=== PATIENT | male | born 1945 | race Caucasian/White ===

== ENCOUNTER 2018-12-09 15:44 | Emergency (ER) | payer OTHER ==
[~2018-12-09] VITALS: Ht 180.3 cm; Wt 84.8 kg
[2018-12-09 16:00] VITALS: Ht 180.3 cm; Wt 84.8 kg
[2018-12-09] MEDS ORDERED: LITHIUM CARBON300 M1 PO (16:32)
[2018-12-09] MEDS ORDERED: METFORMIN HCL1000 MG PO (16:33)
[2018-12-09] MEDS ORDERED: ALLOPURINOL100 MG PO (16:33)
[2018-12-09] MEDS ORDERED: FENOFIBRATE MI134 MG PO (16:33)
[2018-12-09] MEDS ORDERED: COUMADIN2.5 MG PO (16:34)
[2018-12-09] MEDS ORDERED: FUROSEMIDE20 MG PO (16:34)
[2018-12-09] MEDS ORDERED: METFORMIN HYDR500 M1 PO (16:36)
[2018-12-09 16:58] LABS: PLATELET COUNT 308 x10^3mcL (130-400); RED CELL DISTRIBUTION WIDTH 14.1 % (11.5-14.5)
[2018-12-09 16:59] LABS: BASOPHIL % 0 % (0-2)
[2018-12-09 17:01] LABS: CALCIUM 11.4 mg/dL (8.5-10.1); CARBON DIOXIDE 22.5 mmol/L (21-32); CHLORIDE SERUM 108 mmol/L (98-107); CREATININE SERUM 1.4 mg/dL (0.7-1.3); GLUCOSE SERUM 151 mg/dL (74-106); POTASSIUM SERUM 4.1 mmol/L (3.5-5.1); SODIUM SERUM 138 mmol/L (136-145)
[2018-12-09 17:05] LABS: ALBUMIN 3.8 g/dL (3.4-5.0); ALKALINE PHOSPHATASE 73 U/L (46-116); ALT/SGPT 20 U/L (16-63); AST/SGOT 15 U/L (15-37); BILIRUBIN TOTAL 0.81 mg/dL (0.20-1.00); TOTAL PROTEIN, SERUM 7.5 g/dL (6.4-8.2)
[2018-12-09 19:35] VITALS: BP 139/115
[2018-12-09 19:51] LABS: microscopic required? YES; urine erythrocyte 1+ (NEGATIVE)
== END 2018-12-09 20:20 | disposition short-term general hospital (02) ==
LOC: ED 15:44
PROVIDERS: Emergency Medicine
DX: S72.002A Fracture of unspecified part of neck of left femur, initial encounter for closed fracture (principal); N39.0 Urinary tract infection, site not specified; F81.81 Disorder of written expression; Z79.01 Long term (current) use of anticoagulants; Z88.8 Allergy status to other drugs, medicaments and biological substances; W18.30XA Fall on same level, unspecified, initial encounter; Y93.89 Activity, other specified; Y92.89 Other specified places as the place of occurrence of the external cause; Y99.8 Other external cause status
CPT/HCPCS: J0696; J2270; J2405; J7030; J7060; Q0092

== ENCOUNTER 2018-12-30 12:16 | Inpatient (IN) | payer OTHER ==
[~2018-12-30] VITALS: Ht 172.7 cm; Wt 78.5 kg
[~2018-12-30 12:16] MED LIST: ALLOPURINOL100 MG PO; COUMADIN2.5 MG PO; FENOFIBRATE MI134 MG PO; FUROSEMIDE20 MG PO; LITHIUM CARBON300 M1 PO; METFORMIN HCL1000 MG PO; METFORMIN HYDR500 M1 PO
--- NOTE | 2018-12-30 12:23 | NUR ---
AT BEDSIDE FOR PROCEDURE.
--- NOTE | 2018-12-30 12:29 | NUR ---
PT PRESENTS TO ED BIBA FROM [facility] FOR GT/FEEDING TUBE REPLACEMENT. PER EMS TUBE WAS NEWLY PLACED AND CAME OUT. EMS STS TUBE IS IN PLACE BECAUSE PT IS NPO. EMS REPORT PT HAS HX OF STROKE AND IS UNABLE TO TALK BUT STILL MAKES NOISES TO RESPOND. EMS STS PT WAS AT [facility] S/P FALL AND FEMUR FRACTURE. EMS STS PT VSS IN ROUTE TO HOSPITAL. PT NORMAL FOR SELF, UNABLE TO ANSWER QUESTIONS, RESP E/U, ON FULL CM, NO ACUTE DISTRESS NOTED AT THIS TIME. WILL CONTINUE TO MONITOR.
--- NOTE | 2018-12-30 13:36 | NUR ---
PT LAYING ON GURNEY, ACTING NORMAL FOR SELF, RESP E/U, ON FULL CM, NO ACUTE DISTRESS NOTED AT THIS TIME.
[2018-12-30 15:21] LABS: BASOPHIL % 0 % (0-2); PLATELET COUNT 469 x10^3mcL (130-400); RED CELL DISTRIBUTION WIDTH 15.8 % (11.5-14.5)
[2018-12-30 15:42] LABS: CARBON DIOXIDE 26.1 mmol/L (21-32); CHLORIDE SERUM 110 mmol/L (98-107); CREATININE SERUM 1.7 mg/dL (0.7-1.3); GLUCOSE SERUM 238 mg/dL (74-106); POTASSIUM SERUM 4.6 mmol/L (3.5-5.1); SODIUM SERUM 144 mmol/L (136-145)
[2018-12-30 15:46] LABS: ALKALINE PHOSPHATASE 105 U/L (46-116); ALT/SGPT 16 U/L (16-63); AST/SGOT 15 U/L (15-37); BILIRUBIN TOTAL 0.47 mg/dL (0.20-1.00)
[2018-12-30 15:47] LABS: ALBUMIN 3.1 g/dL (3.4-5.0); TOTAL PROTEIN, SERUM 8.3 g/dL (6.4-8.2)
[2018-12-30] MEDS ORDERED: ALBUTEROL SULFAT3 ML NEB (16:03)
[2018-12-30] MEDS ORDERED: ALLOPURINOL100 MG GT (16:03)
[2018-12-30] MEDS ORDERED: LIPI20 GT (16:04)
[2018-12-30] MEDS ORDERED: ASPIR 8181 MG GT (16:04)
[2018-12-30] MEDS ORDERED: DULCOLAX10 M1 RC (16:05)
[2018-12-30] MEDS ORDERED: ELIQUIS5 MG GT (16:05)
[2018-12-30] MEDS ORDERED: COLACE100 MG GT (16:05)
[2018-12-30] MEDS ORDERED: FENOFIBRATE MI134 MG GT (16:06)
[2018-12-30] MEDS ORDERED: FUROSEMIDE20 MG GT (16:06)
[2018-12-30 16:07] LABS: MAGNESIUM 2.9 mg/dL (1.8-2.4); PHOSPHOROUS 3.1 mg/dL (2.5-4.9)
[2018-12-30] MEDS ORDERED: HUMULIN R100 U/1 M1 IJ (16:07)
[2018-12-30] MEDS ORDERED: LITHIUM CARBON300 MG GT (16:08)
[2018-12-30] MEDS ORDERED: LEVAQUIN750 MG GT (16:08)
[2018-12-30] MEDS ORDERED: KRISTALOSE10 GM/Pack GT (16:08)
[2018-12-30] MEDS ORDERED: FLAGYL500 MG GT (16:09)
[2018-12-30] MEDS ORDERED: GOOD NEIGH1200 MG/15 GT (16:09)
[2018-12-30] MEDS ORDERED: NORCO1 TA2 GT (16:10)
[2018-12-30] MEDS ORDERED: REG5 GT (16:11)
--- NOTE | 2018-12-30 16:31 | NUR ---
REPORT CALLED TO BLANCA EISENBERG ON MED/SURG UNIT TO ASSUME CARE OF PT
--- NOTE | 2018-12-30 17:05 | NUR ---
RECEIVED PT FROM ED VIA [facility], CAME IN FROM [facility] FOR G-TUBE DISPLACEMENT. PT IS ALERT, AWAKE BUT NON-VERBAL. ABLE TO FOLLOW VERY SIMPLE COMMANDS. HAND CAN SOLDERER ARE WEAK. NO FACIAL DROOP. PUPILS ARE REACTIVE TO LIGHT. NO SOB NOTED, LUNG SOUNDS CTA. NO S/S OF PAIN NOTED. ABDOMEN IS DISTENDED BUT SOFT. BOWEL SOUNDS HYPOACTIVE. NO G-TUBE AT THIS TIME. W/ ROBISON CATHETER DRAINING W/ YELLOW COLORED URINE. W/ ABRASION ON LEFT UPPER LEG, BILATERAL HEELS AND BUTTOCKS BLANCHABLE ERYTHEMA (OPTIFOAM IN PLACE FOR PROTECTION), OLD G-TUBE SITE ON THE ABDOMEN (COVERED W/ GAUZE SECURED W/ TAPE), SMALL REDDENED SPOTS ON THE BACK, AND BUE ECCHYMOSIS. W/ LINEAR SCABS ON THE LEFT HIP, W/ ABDUCTOR PILLOW IN BETWEEN LEGS. ON AIR MATTRESS. SIDE RAILS UPX2. CALL LIGHT ON REACH. HOB ELEVATED AT 30 DEG. PRIMARY NURSE SHARLA AT BEDSIDE FOR CONTINUITY OF CARE
[2018-12-30 17:44] VITALS: BP 120/71
[2018-12-30 17:55] VITALS: Ht 172.7 cm; Wt 78.5 kg
--- NOTE | 2018-12-30 18:07 | NUR ---
PT IS LAYING DOWN IN BED WITH HOB UP WATCHING TV. PT LOOKS TO BE IN NO ACUTE DISTRESS AT THIS TIME AND DENIES ANY PAIN. PT ABLE TO RESPOND TO QUESTIONS BUT IS INCOMPREHENDABLE, PT ABLE TO OBEY COMMANDS. ROBISON CATHETER PRESENT DRAINING CLEAR YELLOW URINE. OPTIFOAM TO SACRAL AREA, FOAM DRESSING TO B/L HEELS. G TUBE SITE CDI AND COVERED WITH GAUZE DRESSING. IV SITE PATENT WITH NO SIGNS OF ERYTHEMA OR SWELLING WITH IV FLUIDS INFUSING. BED IN LOWEST POSITION CALL LIGHT WITHIN REACH. WILL ENDORSE TO ONCOMING SHIFT.
[2018-12-30 19:14] LABS: microscopic required? NO
[2018-12-30 19:18] LABS: UA SPECIFIC GRAVITY <=1.005 (1.005-1.035); urine erythrocyte NEGATIVE (NEGATIVE)
[2018-12-30 19:27] LABS: AMPHETAMINE QUAL UR NONE DETECTED (See below)
[2018-12-30 19:38] VITALS: BP 133/68
--- NOTE | 2018-12-30 20:00 | NUR ---
RECEIVED PT IN BED, ALERT AND AWAKE. NON VERBAL. ABLE TO FOLLOW SIMPLE COMMANDS. RESP. EVEN AND UNLABORED. LUNG SOUNDS CLEAR BILAT. ON ROOM AIR, NO ACUTE DISTRESS NOTED. ON AIR MATTRESS, WITH GEN. WEAKNESS, TOTAL CARE, NEEDS TO BE TURNED AND REPOSITIONED Q2HRS AND PRN. ECHYMOSIS TO BUE, REDDENED SPOTS TO BACK, HEELS, BUTTOCKS, LT GROIN AND SCROTAL AREA.ABDUCTION PILLOW BETWEEN LEGS. KEPT COMFORTABLE. ROBISON CATH INTACT AND DRAINING YELLOW COLOR URINE. IVF, NS AT 150ML/HR, INFUSING VIA LW SITE CLEAR. CALL LIGHT WITHIN REACH. WILL CONTINUE TO MONITOR.
--- NOTE | 2018-12-30 22:45 | NUR ---
TURNED AND REPOSITIONED FOR COMFORT. IVF, D5NS AT 100ML/HR, INFUSING VIA LAC. WILL CONTINUE TO MONITOR.
--- NOTE | 2018-12-31 01:11 | NUR ---
EYES CLOSED, APPEARS ASLEEP, EASILY AROUSABLE. RESP. EVEN AND UNLABORED. ON ROOM AIR, NO ACUTE DISTRESS NOTED. WILL CONTINUE TO MONITOR.
[2018-12-31 04:41] VITALS: BP 131/76
--- NOTE | 2018-12-31 06:07 | NUR ---
AFEBRILE AND VITAL SIGNS STABLE. RESP. EVEN AND UNLABORED. ON ROOM AIR, NO ACUTE DISTRESS NOTED. IVF INTACT AND INFUSING WELL, SITE CLEAR. TURNED AND REPOSITIONED Q2HRS AND PRN. ABDUCTION PILLOW BETWEEN LEGS. ROBISON CATH INTACT AND PATENT. NPO MAINTAINED ORDERED. CALL LIGHT WITHIN REACH. WILL CONTINUE TO MONITOR.
[2018-12-31 06:21] LABS: BASOPHIL % 0.4 % (0-2); PLATELET COUNT 379 x10^3mcL (130-400)
[2018-12-31 06:51] LABS: CALCIUM 11.3 mg/dL (8.5-10.1); CARBON DIOXIDE 19.9 mmol/L (21-32); CHLORIDE SERUM 117 mmol/L (98-107); CREATININE SERUM 1.7 mg/dL (0.7-1.3); GLUCOSE SERUM 293 mg/dL (74-106); MAGNESIUM 2.6 mg/dL (1.8-2.4); PHOSPHOROUS 2.2 mg/dL (2.5-4.9); POTASSIUM SERUM 5.1 mmol/L (3.5-5.1); SODIUM SERUM 146 mmol/L (136-145)
[2018-12-31 06:53] LABS: RED CELL DISTRIBUTION WIDTH 15.6 % (11.5-14.5)
--- NOTE | 2018-12-31 07:50 | NUR ---
PATIENT UNABLE TO TALK BUT ABLE TO MAKE SOUNDS. PATIENT FOLLOWS SOME SIMPLE COMMANDS. PATIENT WITH GENERALIZED WEAKNESS. NO INDICATION OF PAIN, NAUSEA/VOMITING OR SHORTNESS. IVF D5 NS VIA IV SITE TO LAC. OLD PEG TUBE SITE WITH DRESSING INTACT. ROBISON CATH TO GRAVITY DRAINING YELLOW URINE. ABDUCTOR PILLOW BETWEEN BLE. AIR MATTRESS IN USE. CALL LIGHT WITHIN REACH. SIDE RAILS UP X3. BED IS AT LOWEST POSITION. ALARM IS ON.
[2018-12-31 08:25] VITALS: BP 120/74
--- NOTE | 2018-12-31 09:25 | NUR ---
DR. DAMIAN WAS AT BEDSIDE ASSESSING THE PATIENT.
--- NOTE | 2018-12-31 09:30 | NUR ---
WITH ANOTHER RN, SUSANNE Seals WITNESSING DR. DAMIAN CALLING THE PATIENT'S , KITTY ZHENG TO OBTAIN THE CONSENTS FOR EGD WITH PEG TUBE PLACEMENT AND MODERATE SEDATION. RISK AND BENEFITS ARE EXPLAINED TO THE . THE VERBALIZES UNDERSTANDING AND AGREES FOR THE PATIENT TO HAVE THE PROCEDURE UNDER MODERATE SEDATION.
--- NOTE | 2018-12-31 10:21 | NUR ---
RECEIVED REPORT FROM ANGELA RIOS AND ASSUMED CARE OF THE PATIENT. ALL QUESTIONS AND CONCERNS ADDRESSED.
--- NOTE | 2018-12-31 10:29 | NUR ---
THE PATIENT WAS GIVEN A BATH WITH TONJA WIPES. A SWAB FROM PEG TUBE SITE COLLECTED AND WILL SEND TO LAB FOR CULTURE. REPORT GIVEN JOSE RODRIGUEZ RN. CONCERNS ADDRESSED AND PATIENT'S CARE ENDORSED ACCORDINGLY.
--- NOTE | 2018-12-31 10:31 | NUR ---
REPORT GIVEN TO GISELA RIOS IN GI. PATIENT TAKEN DOWNSTAIRS FOR EGD W/ PEG PLACEMENT VIA BED. AWAITING PATIENT RETURN TO FLOOR.
--- NOTE | 2018-12-31 11:36 | NUR ---
RECEIVED REPORT FROM OUTPATIENT RN. PATIENT DIAGNOSIS WAS NORMAL UPPER GI. PEG TUBE PLACE TO ALTERNATE LOCATION AND ABDOMINAL BINDER APPLIED. VITALS STABLE. PER DR RICKIE STOREY TO USE PEG. AWAITING PATIENT RETURN TO FLOOR.
--- NOTE | 2018-12-31 12:22 | NUR ---
RECEIVED PATIENT FROM GI. PATIENT RESTING COMFORTABLY IN BED AND REQUESTING SOMETHING TO DRINK. WILL CONSULT MD. ROBISON EMPTIED AT THIS TIME 1250 CLEAR YELLOW URINE REMOVED. FLUIDS RESUMED.
--- NOTE | 2018-12-31 14:29 | NUR ---
RECEIVED CALL FROM DARRION FOR PATIENT UPDATE. TOLD HER I WOULD NEED TO CALL HER BACK. GOT OK FROM SUSY TO UPDATE DARRION ON PATIENT STATUS. SUSY SAID OK.
--- NOTE | 2018-12-31 15:24 | NUR ---
CALLED DARRION BACK AND NOTIFIED THAT THERE ARE CURRENTLY NO PLANS TO SEND PATIENT BACK TODAY.
[2018-12-31 16:57] VITALS: BP 115/67
--- NOTE | 2018-12-31 17:54 | NUR ---
TUBE FEED STARTED NOW. GLUCERNA 1.2 @ 30 ML/HR W 50ML FWF Q4H. IF TOLERATED TO BE INCREASED TO GOAL 35 ML/HR EVERY FOUR HOURS.
--- NOTE | 2018-12-31 19:05 | NUR ---
REPORT RECEIVED FROM DAY SHIFT RN. PATIENT WAS SEEN AND IS RESTING COMFORTABLY IN BED. NO DISTRESS NOTED. BREATHING EVEN AND UNLABORED ON ROOM AIR. NO SOB OR RESP DISTRESS NOTED. NO S/S OF PAIN NOTED. NO INDICATIONS OF CHEST PAIN/PRESSURE. NONVERBAL, BUT IS ABLE TO FOLLW SIMPLE COMMANDS. NO MAONING OR FACIAL GRIMACING NOTED. EDUCATED PATIENT NOT TO PULL ON LINES OR TUBES. PEG TUBE NOTED WITH ABD BINDER. GLUCERNA 1.2 TUBE FEEDING AT 30ML /HR. IV TO THE LAC INFUSING WELL. PATENT AND INTACT. NO REDNESS OR SWELLING NOTED. ABDUCTOR PILLOW IN PLACE FOR PREV FEMUR FRACTURE. ROBISON CATH IN PLACE DRAINING LYLA URINE BY GRAVITY. SAFETY AND COMFORT MEASURES IN PLACE. ASPIRATION PRECAUTIONS IN PLACE. BED IS LOCKED AND IN THE LOWEST POSITION. SIDE RAILS UP X2. CALL LIGHT IS WITHIN REACH. WILL CONTINUE TO MONITOR.
--- NOTE | 2018-12-31 19:45 | NUR ---
REPORT GIVEN TO DENNISE RIOS. ALL QUESTIONS AND CONCERNS ADDRESSED. ALL CARES ENDORSED.
[2018-12-31 21:09] VITALS: BP 126/67
--- NOTE | 2018-12-31 21:30 | NUR ---
MEDS GIVEN THROUGHOUT GTUBE. 0ML OF RESIDUALS NOTED. BS 248. 6 UNITS OF RGUALR INSULIN GIVEN PER ORDER. GLUCERNA 1.2 AT 30ML/HR. PATIENT REPOSITIONED FOR COMFORT. NO DISTRESS NOTED. BREATHING EVEN AND UNLABORED. IV INFUSING WELL. SAFETY MEASURES IN PLACE. CALL LIGTH IS WITHIN REACH. WILL CONTINUE TO MONITOR.
--- NOTE | 2019-01-01 01:15 | NUR ---
RESTING IN BED WITH EYES CLOSED. NO DISTRESS NOTED. BREATHING EVEN AND UNLABORED ON ROOM AIR. TUBE FEEDING INFUSING WELL AT 30ML/HR. IVF INFUSING WELL. ROBISON CATH IN PLACE DRAINING NOW YELLOW URINE. ABDUCTOR PILLOW IN PLACE. SAFETY MEASURES IN PLACE. CALL LIGHT IS WITHIN REACH. WILL CONTINUE TO MONITOR.
--- NOTE | 2019-01-01 02:45 | NUR ---
IV TO LAC, 22G, CAME OUT WITH CATHETER INTACT. NEW IV INSERTED TO MATIAS, 22G, FLUSHED WELL. PATENT AND INTACT. NO REDNESS OR SWELLING. DRESSING CDI. PATIENT TOLERATED WELL. CONTINUED D5NS AT 70ML/HR. SAFETY MEASURES IN PLACE. WILL CONTINUE TO MONITOR.
--- NOTE | 2019-01-01 02:53 | NUR ---
PATIENT MOANING W/ FACIAL GRIMACING. ASKED PATIENT TO POINT AT WHERE HIS PAIN IS AT AND PATEINT POINTED TO ABD. PRN NORCO GIVEN PRESCRIBED THROUGH PEG TUBE. NO DISTRESS NOTED. RESIDUALS CHECKED PRN NORCO WAS ADMINISTERED AND 0ML OF RESIDUALS NOTED. ADVANCED TUBE FEEDING TO 35ML/HR (GOAL RATE). CALL LIGHT IS WITHIN REACH. WILL CONTINUE TO FREQUENTLY MONITOR.
[2019-01-01 05:11] VITALS: BP 114/63
--- NOTE | 2019-01-01 06:30 | NUR ---
RESTED IN SHORT INTERVALS THROUHGOUT THE NIGHT. NO ACUTE CHANGES NOTED. BREATHING EVEN AND UNLABORED ON ROOM AIR. NO SOB OR RESP DISTRESS NOTED. NO DISTRESS NOTED. PEG TUBE IN PLACE W/ CONT TUBE FEEDING, GLUCERNA 1.2, AT 35 ML/HR. NO RESIDUALS NOTED. TOLERATING WELL. IV TO THE MATIAS INFUSING WELL. ROBISON DRAINING YELLOW URINE BY GRAVITY. ROBISON CARE DONE. NO BM NOTED. ABDUCTOR PILLOW IN PLACE. SAFETY MEASURES IN PLACE. CALL LIGHT IS WITHIN REACH. WILL ENDORSE CARE TO DAY SHIFT RN.
[2019-01-01 06:48] LABS: PLATELET COUNT 332 x10^3mcL (130-400)
[2019-01-01 06:58] LABS: CALCIUM 10.9 mg/dL (8.5-10.1); CARBON DIOXIDE 21.2 mmol/L (21-32); CHLORIDE SERUM 123 mmol/L (98-107); CREATININE SERUM 1.6 mg/dL (0.7-1.3); GLUCOSE SERUM 267 mg/dL (74-106); MAGNESIUM 2.4 mg/dL (1.8-2.4); PHOSPHOROUS 3.3 mg/dL (2.5-4.9); POTASSIUM SERUM 5.2 mmol/L (3.5-5.1); SODIUM SERUM 152 mmol/L (136-145)
--- NOTE | 2019-01-01 07:00 | NUR ---
RCD REPORT FROM BLANCA BOWDEN. PATIENT WITH PEG TUBE IN PLACE, DRESSING CDI, ABDOMINAL BINDER IN PLACE. IV TO MATIAS, D5NS AT 70 ML/HR WITHOUT COMPLICATIONS. TUBE FEEDING, GLUCERNA 1.2 35 ML/HR WITH Q4H FWF 50 ML. PATIENT IS NONVERBAL, AWAKE, NO DISTRESS NOTED. ABDUCTOR PILLOW IN PLACE DUE TO FEMUR FRACTURE, PER REPORT, PATIENT ON AIR MATTRESS.
[2019-01-01 07:22] LABS: BASOPHIL % 0 % (0-2); RED CELL DISTRIBUTION WIDTH 16.1 % (11.5-14.5)
[2019-01-01 08:11] VITALS: BP 132/64
--- NOTE | 2019-01-01 08:45 | NUR ---
PATIENT AWAKE, ALERT, FOLLOWS SIMPLE COMMANDS, NONVERBAL BUT MAKES UNDISCERNABLE VERBAL NOISES. PULLS AT LINENS AND REMOVES GOWN. ATTEMPTS MADE TO PROTECT TUBING BY HIDING. HX OF STROKE. ROBISON IN PLACE DRAINING YELLOW URINE TO GRAVITY, ROBISON CARE PERFORMED. PEG TUBE WITH 5 ML RESIDUAL, REPLACED. OPTIFOAM IN PLACE TO SACRUM AND HEELS. BED ALARM ON, CALL LIGHT WITHIN REACH. WILL MONITOR.
[2019-01-01 12:57] VITALS: BP 132/64
--- NOTE | 2019-01-01 13:36 | NUR ---
Initial Nutrition Assessment: 251/B OTONIEL ZHENG IA HR Dx: Displaced G tube PMHx: mental delay, DM, stroke, DVT, Bipolar, femur fracture PSHx: 'vein surgery' Labs: NA 152H, K 5.2H, BG 267H, BUN 25H, CREAT 1.6H, A1C 6.8H, WBC 11.8H Meds: Albuterol, Colace, D 50%, humulin, Lasix, Lipitor, reglan, Zofran, zosyn Diet: TF (PEG), Glucerna 1.2 @ 30 ml/hr, goal 35 ml/hr, FWF 50 ml Q4H PO Intake: NPO Ht: 172.72 cm (68") Wt: 78.4 kg (172#) BMI: 26.3 kg/m2 Bed scale: 78.4 kg IBW: 154# (70") %IBW: 111 UBW: unable to access as pt is confused Age: 73/M Food Allergies: NKFA Skin: BUE ecchymosis, black red spots, erythema to heels, buttock, scrotum Douglas: 13 Edema: none GI: Last BM: unknown Per H&P, Pt is a 73 year old male with history of mental delay, DM, stroke brought into the ED by ambulance from [facility]. Patient was brought in to ED because his G-tube was displaced. RDN Visit (01/01): Patient was confused and TF was on hold. Spoke with KATHY Magana, she said that TF was on hold as pt was being repositioned and she turned it back on @ 35 ml/hr. She also said that pt is being D/C in an hour. Patient tolerated TF without any residuals. Per progress note (12/31) Patient had EGD with PEG placement. Problem with: N/V/D/C: none, no BM since admission Problems with: Chewing/Swallowing: on TF Current appetite: unable to access Recent wt change: unable to access %wt change: n/a Vitamin/Supplement use: unable to access Special diet at home: unable to access Physical activity: unable to access Nutrition education given: not possible at this time Food-drug interactions: lipitor- avoid grapefruit Education given: no Estimated Nutritional Needs Based on current body weight 78.4 kg Energy: 7769-6696 kcal/d (25-30 kcal/kg) Protein: 78.4-94 g/d (1.0-1.2 g/kg) - geriatric needs Fluid: 4770-4338 ml/d (1 ml/kcal) or per doctor Nutrition Diagnosis 1. Inadequate enteral nutrition infusion related to low TF rate/ TF on hold as evidenced by estimated calorie and protein requirements. Intervention 1. Recommend increasing Glucerna 1.2 @ 60 ml/hr, progress by 10 ml Q4H. This will provide 1730 kcal and 86g protein. This will meet >75% of estimated calorie and protein needs of the patient. Patient to be D/C today. Monitor/Evaluate Goal: PO intake at least 75% of estimated needs Monitor: PO intake, Labs, GI function F/U in 2-3 days as high risk 01/03-
--- NOTE | 2019-01-01 14:35 | NUR ---
PATIENT ASLEEP, REGULAR RESPS. BED LOW, ALARM ON, CALL LIGHT WITHIN REACH. WILL MONITOR.
--- NOTE | 2019-01-01 16:46 | NUR ---
1611 PM CALLED PATIENT'S , KITTY FREDERICK, WHO AGREED FOR PATIENT TO BE TRANSFERRED BACK TO [facility], WITNESSED BY BLANCA JIANG. PATIENT TO BE PICKED UP AT 1800 PM. 1624 PM CALLED DARRION AND GAVE REPORT TO NILDA RECEIVING NURSE, AT [phone], ROOM 35.
[2019-01-01 16:53] VITALS: BP 113/60
--- NOTE | 2019-01-01 18:11 | NUR ---
PATIENT PREPARED FOR PICKUP/TRANSPORT BACK TO [facility]. IV TO MATIAS REMOVED BY RA CAMARGO. FEEDING DISCONTINUED AND PEG TUBE CLAMPED. PHOTOS TAKEN OF AREAS OF SKIN OF CONCERN ON ADMISSION AND PLACED IN CHART. PATIENT RETURNING TO [facility] WITH ROBISON IN PLACE, ABDUCTOR PILLOW, PEG TUBE FUNCTIONING WELL, ABDOMINAL BINDER. NO DISTRESS NOTED.
== END 2019-01-01 18:16 | DRG 871 ==
LOC: ED 12:16 → MU 15:19
PROVIDERS: Emergency Medicine; Internal Medicine Gastroenterology; ADMIT Internal Medicine
PROC: 0DH63UZ Insertion of Feeding Device into Stomach, Percutaneous Approach (ICD-10-PCS; 2018-12-31)
PROC: 0DP68UZ Removal of Feeding Device from Stomach, Via Natural or Artificial Opening Endoscopic (ICD-10-PCS; principal; 2018-12-31 09:30)
DX: A41.9 Sepsis, unspecified organism (principal); N17.0 Acute kidney failure with tubular necrosis; T85.528A Displacement of other gastrointestinal prosthetic devices, implants and grafts, initial encounter; E44.1 Mild protein-calorie malnutrition; K94.22 Gastrostomy infection; L03.311 Cellulitis of abdominal wall; E86.0 Dehydration; E11.65 Type 2 diabetes mellitus with hyperglycemia; I69.391 Dysphagia following cerebral infarction; R13.10 Dysphagia, unspecified; E83.41 Hypermagnesemia; F31.9 Bipolar disorder, unspecified; Z79.82 Long term (current) use of aspirin; Z79.4 Long term (current) use of insulin; Z79.01 Long term (current) use of anticoagulants; Z79.84 Long term (current) use of oral hypoglycemic drugs; Y83.3 Surgical operation with formation of external stoma as the cause of abnormal reaction of the patient, or of later complication, without mention of misadventure at the time of the procedure; Y92.122 Bedroom in nursing home as the place of occurrence of the external cause
CPT/HCPCS: 43235; 82962; G0378; J1200; J1610; J1644; J1815; J1956; J2250; J2310; J2543; J3010; J3490; J7030; J7042; J8597; Q0092; Q9967